=== PATIENT | female | born 1950 | race Caucasian/White ===

== ENCOUNTER 2022-11-20 12:48 | Emergency (ER) | payer MEDICARE, SELFPAY ==
[2022-11-20 13:01] VITALS: BP 131/81; PULSE 88; RESP 16; TEMP 36.2; O2SAT 97; BMI 30.6
--- NOTE | 2022-11-20 13:01 | ED.BACK ---
HPI - Back Pain/Injury General Chief Complaint: Back Pain/Injury Stated Complaint: back pain Time Seen by Provider: 11/20/22 13:08 Source: patient and family Mode of arrival: ambulatory Limitations: no limitations History of Present Illness HPI Narrative: 72 yo female with no known medical history here with complaints of lower back pain For the last 1 week. Patient reports that she has had history of chronic back pain. She is taking Tylenol and using medicated patches at home with continued symptoms. Her pain is in her lower back and radiates to the right leg. There is no associated numbness or tingling of the legs. There is no associated numbness in the groin. There is no bowel or bladder incontinence. There is no fevers or chills. Related Data Previous Rx's Medication Instructions Recorded cyclobenzaprine 10 mg tablet 10 mg PO Q8H PRN muscle spasm #15 11/20/22 tabs lidocaine 5 % topical patch 1 patch topical DAILY #15 ea 11/20/22 (Lidoderm) prednisone 20 mg tablet 40 mg PO DAILY #10 tabs 11/20/22 Allergies Allergy/AdvReac Type Severity Reaction Status Date / Time No Known Allergies Allergy Verified 11/20/22 13:05 Review of Systems Review of Systems: Yes all other systems are reviewed and are negative Constitutional: Constitutional: Reports no additional constitutional complaints, Denies body ache(s), Denies chills, Denies fever(s), Denies headache(s) and Denies weakness Eyes: Eyes: Reports no additional eye complaints and Denies change in vision ENT: Reports system reviewed and no additional complaints, except as documented, Denies dizziness, Denies headache(s), Denies nasal congestion, Denies nasal discharge and Denies neck pain Cardiovascular: Cardiovascular: Reports no additional cardiovascular complaints, Denies chest pain, Denies leg edema and Denies dyspnea Respiratory: Respiratory: Reports no additional respiratory complaints, Denies cough and Denies dyspnea Gastrointestinal: Gastrointestinal: Reports no additional gastrointestinal complaints, Denies abdominal pain, Denies diarrhea, Denies nausea and Denies vomiting Genitourinary: Genitourinary: Reports no additional female genitourinary complaints and Denies urinary incontinence Musculoskeletal: Musculoskeletal: Reports no additional musculoskeletal complaints, Reports back pain, Denies arthralgias, Denies joint swelling, Denies neck pain, Denies numbness, Reports radiating pain into limb and Denies tingling Integumentary/Breasts: Skin/Breast: Reports system reviewed and no additional complaints, except as docu and Denies rash Neurologic: Reports system reviewed and no additional complaints, except as documented, Denies Abnormal speech present, Denies dizziness, Denies headache(s), Denies numbness, Denies tingling and Denies weakness PMFSH Past Medical History Attestation statement: The following information was validated with the patient. Source: old records reviewed and nursing notes reviewed Social History Social History Alcohol intake: never Smoked in Last 30 Days: No Use of substances other than those prescribed or required for medical reasons: No Advance Directives: No Advance Directives Information Provided: No Physical Exam Vital Signs: Vital Signs: Last Vital Signs Temp 98.0 F 11/20/22 14:21 Pulse 76 11/20/22 14:21 Resp 16 11/20/22 14:21 BP 118/59 L 11/20/22 14:21 Pulse Ox 98 11/20/22 14:21 O2 Del Method Room Air 11/20/22 14:21 BMI result Body Mass Index 30.6 Const: General: cooperative, healthy appearing, comfortable and no acute distress Orientation/consciousness: patient oriented x3 Limitations: no limitations HEENT: Head: Yes normal to inspection Ears: hearing grossly normal bilaterally General nose exam: Normal external nose present Face and sinus: Yes normal facial exam Mouth: Normal oral and palatal mucosa present Throat: Yes posterior oropharynx normal Eyes: General: appearance normal, both eyes and all related structures Pupils: Equal, round and reactive pupils present Neck: Neck: Yes normal visual inspection Chest: Chest palpation & inspection: normal inspection of the chest Resp: Effort & Inspection: normal respiratory effort Auscultation: clear to auscultation bilaterally Cardio: Rate: regular rate Rhythm: regular rhythm Peripheral pulses: Peripheral pulses 2+ throughout GI: Inspection: Yes normal to inspection Palpation (GI): Soft to palpation and nontender Auscultation: normal bowel sounds Back/Spine/Pelvis: Other: There is tenderness on palpation to the lumbar mid spine with no step-offs deformities. Normal straight leg raise Thoracic/Lumbar Spine: thoracic and lumbar spine normal to inspection Skin: General skin exam: no rashes or lesions noted Neuro: General: patient oriented x3, no focal motor deficits and normal sensation to monofilament Cranial nerves: Yes CN's II-XII intact bilaterally, Yes Equal, round and reactive pupils present, Yes Bilaterally intact EOM present, Yes Nystagmus not present, Yes Normal facial strength present and Yes Midline tongue present Cognition (Neuro): normal cognition Speech: No Abnormal speech present Gait exam (Neuro): Normal gait present Motor exam (neuro): 5/5 motor strength present throughout Sensory Exam: Normal double simultaneous stimulation for sensation Deep tendon reflexes (DTR's): Right patellar reflex intensity grade: 2+ and Left patellar reflex intensity grade: 2+ Extrem: General: Yes normal to inspection, Yes no pedal edema and Yes no calf tenderness Course Course Course Narrative: RME: 72yo F w/no sig PMHx c/o low back pain x1.5 weeks s/p brushing dog w/RLE radiation. denies incontinence/retention, fever. Took Tylenol w/little relief, last dose at noon. Ambulating w/slow steady gait. Lumbar XRs ordered Full HPI, ROS and PE to be performed by primary ED provider. Medical Decision Making Medical Decision Making MDM Narrative: 72-year-old female with history of chronic back pain presents to the ER with complaints of lower back pain with radiation down the right leg for the last 1 week no known injury or trauma. On exam patient has tenderness over the lumbar mid spine with no step-offs deformities. She has no reports of fall or injury. She has no neurological deficits or red flag symptoms. Likely lumbar radiculopathy. Patient had x-rays ordered from triage. Will review no indication for emergent MRI patient will be discharged home with prednisone, Flexeril. Reviewed worrisome signs and symptoms of when to return to the emergency room. Comfortable plan for discharge home. Differential Diagnosis Differential Diagnoses: The differential diagnosis associated with the presentation includes herniated discs, OA Caude equina/cord compression, epidural abscess, malignancy-less likely with no reports of fevers, chills, motor loss, saddle anesthesia, incontinence AAA, renal colic pyelo Independent Interpretation I performed an independent interpretation of an: Plain X-Ray Interpretation: I independently reviewed the x-rays and agreed with radiology report Radiology Impression Discussion of test interpretation with radiology: I have reviewed the radiologist's reading. Radiologist Impression: [address] [address] XRay Report Signed Patient: Sarah Rai MR#: [id number] : 1950 Acct:[id number] Age/Sex: 72 / F ADM Date: 11/20/22 Loc: HO.ED Attending Dr: Ordering Physician: Sophy Astorga Date of Service: 11/20/22 Procedure(s): XR lumbar spine 2-3V Accession Number(s): [id number] cc: Sophy Astorga~ EXAMINATION: XR LUMBOSACRAL SPINE CLINICAL INFORMATION: Low back pain. COMPARISON: None available. TECHNIQUE: Three views of the lumbosacral spine. FINDINGS: There is maintained lumbar lordosis. The vertebral heights and alignment is normal. Loss of L1-L2, L2-L3, L4-L5 and L5-S1 disc heights. No aggressive lytic or sclerotic process seen. The SI joints are symmetrical. No visible XR/XR lumbar spine 2-3V IMPRESSION: Mild degenerative disc changes lumbar spine. No visible acute fracture, dislocation or lytic process seen. Independent Historian Clinical information obtained from an independent historian. History obtained from or confirmed by: Friend Tests considered The following testing was considered but not selected: no need for emergent MRI with no focal neurological deficits or red flag symptoms Discharge Plan Discharge Clinical Impression: Lumbar radiculopathy Patient Disposition: Home, Self-Care Instructions: Lumbar Radiculopathy (ED) Additional Instructions: Heat or ice Gentle stretching No heavy lifting or bending Return for numbness in the groin, incontinence of urine/stool, fever Prescriptions: New prednisone 20 mg tablet 40 mg PO DAILY Qty: 10 0RF cyclobenzaprine 10 mg tablet 10 mg PO Q8H PRN (Reason: muscle spasm) Qty: 15 0RF lidocaine [Lidoderm] 5 % adhesive patch,medicated 1 patch topical DAILY Qty: 15 0RF Rx Instructions: leave on most painful area for up to 12 hrs Referrals: Physician,Unknown J [Primary Care Provider] - 1 week Interventions: ED Discharge Assessment Last Done: 11/20/22 14:35 Discharge Date/Time: 11/20/22 14:36
[2022-11-20 14:21] VITALS: BP 118/59; PULSE 76; RESP 16; TEMP 36.7; O2SAT 98
== END 2022-11-20 14:36 | disposition home or self-care (01) ==
PROVIDERS: Emergency Provider Emergency Medicine
DX: M54.16 Radiculopathy, lumbar region (principal); M54.50 Low back pain, unspecified
CPT/HCPCS: 72100; 99283; 99284